=== PATIENT | female | born 1945 | race Caucasian/White ===

== ENCOUNTER 2017-03-11 10:33 | Emergency (ER) | payer MEDICARE, OTHER ==
[2017-03-11 10:45] VITALS: BP 104/56
--- NOTE | 2017-03-11 11:10 | UC ---
Neck Pain HPI - HPI Summary HPI Summary: Patient was attempting to shut the car door with her leg fell backwards and landed on her Butt, 2 days later has pain along the lower c spine with neck ext. no radicuopathy. Does have osetoporosis. - History of Current Complaint Chief Complaint: UCHeadache Stated Complaint: NECK PAIN Time Seen by Provider: 03/11/17 11:01 Hx Obtained From: Patient Mechanism Of Injury: Blunt Trauma Onset/Duration: Sudden Onset, Lasting Days Severity: Mild Location: Discrete At: Character: Dull Aggravating Factors: Movement Alleviating Factors: Nothing Associated Signs & Symptoms: Positive: Negative - Allergies/Home Medications Allergies/Adverse Reactions: Allergies Allergy/AdvReac Type Severity Reaction Status Date / Time Adhesive Tape Allergy Hives Verified 03/11/17 10:45 Sulfamethoxazole Allergy Nausea Verified 03/11/17 10:45 w/Trimethoprim [From Bactrim] Home Medications: Home Medications Ascorbic Acid TAB* [Vitamin C TAB*] 1 tab PO DAILY 03/11/17 [History Confirmed 03/11/17] Cholecalciferol TAB* [Vitamin D TAB*] 10,000 unit PO SEE INSTRUCTIONS 03/11/17 [ History Confirmed 03/11/17] Multiple Vitamins W/ Minerals [Multivitamin] 1 liq PO DAILY 03/11/17 [History Confirmed 03/11/17] Castile-3 Fatty Acids (Nf) [Fish Oil (NF)] 1,000 mg PO DAILY 03/11/17 [History Confirmed 03/11/17] azaTHIOprine TAB(*) [Imuran TAB(*)] 50 mg PO DAILY 03/11/17 [History Confirmed 03/11/17] predniSONE TAB* [Deltasone TAB*] 5 mg PO DAILY 03/11/17 [History Confirmed 03/11] PMH/Surg Hx/FS Hx/Imm Hx Previously Healthy: Yes - Surgical History Surgical History: Yes Surgery Procedure, Year, and Place: kidney transplant 1975 - Family History Known Family History: Positive: Hypertension - Social History Alcohol Use: None Substance Use Type: None Smoking Status (MU): Never Smoked Tobacco - Immunization History Most Recent Influenza Vaccination: yes 2016 Review Of Systems Constitutional: Positive: Negative Skin: Positive: Negative Eyes: Positive: Negative ENT: Positive: Negative Respiratory: Positive: Negative Cardiovascular: Positive: Negative Gastrointestinal: Positive: Negative Genitourinary: Positive: Negative Musculoskeletal: Positive: Arthralgia Neurological: Positive: Negative Psychological: Positive: Negative All Other Systems Reviewed And Are Negative: Yes Physical Exam Triage Information Reviewed: Yes Appearance: Well-Appearing, Well-Nourished, Pain Distress Vital Signs: Initial Vital Signs Temp 97.8 F 03/11/17 10:40 Pulse 76 03/11/17 10:40 Resp 16 03/11/17 10:40 BP 104/56 03/11/17 10:40 Pulse Ox 100 03/11/17 10:40 Vital Signs Reviewed: Yes Eye Exam: Normal ENT Exam: Normal ENT: Positive: Hearing grossly normal, Pharynx normal, TMs normal Dental Exam: Normal Neck exam: Normal Neck: Positive: Supple, Nontender, No Lymphadenopathy, Other: - pain only with extention of c spine, no palpable tenderness Respiratory Exam: Normal Respiratory: Positive: Chest non-tender, Lungs clear, Normal breath sounds Cardiovascular Exam: Normal Cardiovascular: Positive: RRR, No Murmur, Pulses Normal Abdominal Exam: Normal Abdomen Description: Positive: Nontender, No Organomegaly, Soft Bowel Sounds: Positive: Present Musculoskeletal Exam: Normal Musculoskeletal: Positive: Strength Intact, ROM Intact, No Edema Neurological Exam: Normal Neurological: Positive: Alert, Muscle Tone Normal Psychological Exam: Normal Skin Exam: Normal Neck Pain Course/Dx - Course Course Of Treatment: hx obtained, exam performed ,meds reviewed, xray obtained, no acute injury - Differential Dx/Diagnosis Differential Dx/HQI/PQRI: Arthritis, Cervical Fracture, Dislocation, Sprain, Strain Provider Diagnoses: DJD of spine,. osteopenia. neck pain Discharge - Discharge Plan Condition: Stable Disposition: HOME Patient Education Materials: Neck Pain (ED) Referrals: Rand Cardona DO [Primary Care Provider] - Additional Instructions: 1. I recommend heat and rest, Ibuprofen as needed. 2. FOllow up with any worsening symptoms
--- NOTE | 2017-03-11 11:24 | RAD ---
HISTORY: Subacute trauma, fall, neck pain COMPARISONS: None VIEWS: 3, Frontal, lateral, and open-mouth odontoid views of the cervical spine. FINDINGS: The cervical spine is visualized from the skull base through T1. ALIGNMENT: Straightening with mild reversal of the normal cervical lordosis. There is trace retrolisthesis of C4 on C5. There is trace anterolisthesis of C6 on C7 VERTEBRAL BODIES: There is osteopenia. There is multilevel anterolateral marginal osteophyte formation. JOINTS: There is diffuse uncovertebral and facet osteoarthritic change. INTERVERTEBRAL DISCS: There is diffuse loss of intervertebral disc height. SOFT TISSUE: The prevertebral soft tissues are normal. OTHER: The skull base is normal. The lung apices are clear. IMPRESSION: 1. OSTEOPENIA. 2. DEGENERATIVE DISC DISEASE AND OSTEOARTHRITIS. 3. NO ACUTE OSSEOUS INJURY TO THE CERVICAL SPINE
== END 2017-03-11 11:45 | disposition home or self-care (01) ==
LOC: EDSEX 10:33 → UCCORT 10:33
DX: M47.896 Other spondylosis, lumbar region (principal); M54.2 Cervicalgia; M85.80 Other specified disorders of bone density and structure, unspecified site; Z91.048 Other nonmedicinal substance allergy status; Z88.2 Allergy status to sulfonamides; Z88.1 Allergy status to other antibiotic agents
CPT/HCPCS: 72040; 99201; G0463